=== PATIENT | female | born 1965 | race Caucasian/White ===

== ENCOUNTER → 2021-11-18 14:06 | Outpatient (CLI) | payer OTHER, SELFPAY | PROVIDERS: Visit Provider Nurse Practitioner | DX: U07.1 COVID-19 (principal) | CPT/HCPCS: C9803; U0003; U0005 ==

== ENCOUNTER 2022-09-11 17:42 | Emergency (ER) | payer OTHER, SELFPAY ==
[2022-09-11 20:13] VITALS: BP 154/90; PULSE 76; RESP 18; TEMP 36.9; O2SAT 99; BMI 27.4
[2022-09-11 20:23] LABS: UTC Influenza A Antigen Negative (Negative); UTC Influenza B Antigen Negative (Negative)
--- NOTE | 2022-09-11 20:44 | EXP.UTC ---
Discharge Plan Disposition Patient Disposition: Home, Self-Care Condition: Good Prescriptions Prescriptions: New ondansetron 4 mg tablet,disintegrating 4 mg PO Q8H PRN (Reason: nausea and vomiting) Qty: 10 0RF Referrals Follow up/Referrals: Gene Whitaker [Primary Care Provider] - See instructions Activity Restrictions/Add. Instructions Additional Instructions/Restrictions: *Monitor Temp, Over the counter Motrin or Tylenol as directed/as needed Tylenol every 4 hours and Motrin every 6 hours (as long as your family doctor has told you that you can take it) for fever or pain. and straight to ER if unable to lower temp less than 101.0 after medication given *Warm salt water gargles may help to soothe the throat *Throat Lozenges? *Warm fluids like tea with honey may help to soothe the throat? *Sleep elevated *Humidifier/Vaporizer Follow up IMMEDIATELY for new or worsening symptoms or no Noticeable improvement over the next 48-72 hours. 911 for difficulty breathing or swallowing You were tested for today for Upper Respiratory Panel with COVID19 your test result should be back in the next 24-48 hours, you may check your results on the [facility] Clinical Impressions Clinical Impression: Upper respiratory virus Stand Alone Forms Stand Alone Forms: Work/School Release Instructions Patient Instructions: DI for Fever (Symptom) -- Adult, DI for Viral Upper Respiratory Infection -- Adult Discharge ED Provider: Anne-Marie Feliciano [facility] [place] HPI General Stated complaint: upset stomach, cough, congestion, body aches, soa Mode of Arrival: Ambulatory Source of Information: Patient Limitations: No Limitations Time Seen by Provider: 09/11/22 20:44 Description of Symptoms (Recalled from Triage Doc. by RN): PT TO UT WITH COUGH, FEVER, RUNNY NOSE, NAUSEA AND BODY ACHES X 2 DAYS HEENT Symptoms (Recalled from RN notes): Yes (RUNNY NOSE) Resp Symptoms (Recalled from RN notes): Yes (COUGH, CONGESTION) Skin Symptoms (Recalled from RN notes): No MS Symptoms (Recalled from RN notes): Yes (BODY ACHES) Functional Status (Recalled from RN notes): WDL History of Present Illness Provider Complaint: Patient states that she hasnt felt well for the last couple of days States that she has been having fever, chills, bodyaches, nausea and over all not feeling well States that she feels like she has the flu Related Data Previous Rx's Medication Instructions Recorded ondansetron 4 mg disintegrating 4 mg PO Q8H PRN nausea and 09/11/22 tablet vomiting #10 tabs Allergies Allergy/AdvReac Type Severity Reaction Status Date / Time No Known Allergies Allergy Verified 09/11/22 20:48 Worker's Comp Is this a Worker's Comp case?: No PFSH PFSH Social History Smoking Status: Unknown if ever smoked alcohol intake: never current occupational status: employed Travel in the last 8 weeks: None ROS Obtained: Yes All systems reviewed & no additional complaints except as documented and Yes Systems reviewed as appropriate & no additional complaints except as documented Constitutional Constitutional: Reports system reviewed and no additional complaints, except as documented, Reports as per HPI, Reports body ache, Reports chills and Reports fever(s) ENT Ears, Nose, Mouth, and Throat: Reports system reviewed and no additional complaints, except as documented, Reports as per HPI, Reports nasal congestion and Reports nasal discharge Cardiovascular Cardiovascular: Reports system reviewed and no additional complaints, except as documented and Reports as per HPI Respiratory Respiratory: Reports system reviewed and no additional complaints, except as documented and Reports as per HPI Gastrointestinal Gastrointestingal: Reports system reviewed and no additional complaints, except as documented, as per HPI and nausea Physical Exam General General appearance: alert and in no apparent distress Expanded ENT Exam Nose exam: P
[2022-09-11 20:48] LABS: Adenovirus,PCR Not Detected (NotDetected); Bordetella Pertussis Not Detected (NotDetected); Chlamydophila Pneumoniae, PCR Not Detected (NotDetected); Coronavirus 19, PCR Not Detected (NotDetected); Coronavirus 229E Not Detected (NotDetected); Coronavirus NL63 Not Detected (NotDetected); Coronavirus OC43 Not Detected (NotDetected); Coronovirus HKU1,PCR Not Detected (NotDetected); Human Metapneumovirus Not Detected (NotDetected); Influenza A, PCR Not Detected (NotDetected); Influenza AH1, 2009 Not Detected (NotDetected); Influenza AH1, PCR Not Detected (NotDetected); Influenza AH3,PCR Not Detected (NotDetected); Influenza B, PCR Not Detected (NotDetected); Mycoplasma Pneumoniae, PCR Not Detected (NotDetected); Parainfluenza 1, PCR Not Detected (NotDetected); Parainfluenza 2, PCR Not Detected (NotDetected); Parainfluenza 3, PCR Not Detected (NotDetected); Parainfluenza 4, PCR Not Detected (NotDetected); Respiratory Syncytial Virus Not Detected (NotDetected); Rhinovirus/Enterovirus Not Detected (NotDetected)
[2022-09-11 21:04] VITALS: BP 142/89; PULSE 74; RESP 17; TEMP 36.9; O2SAT 99
== END 2022-09-11 21:05 | disposition home or self-care (01) ==
PROVIDERS: Emergency Provider Nurse Practitioner; PCP Family Medicine
DX: J06.9 Acute upper respiratory infection, unspecified (principal)
CPT/HCPCS: 87581; 87632; 87798; 87804; 99212; C9803; G0463; U0003; U0005

== ENCOUNTER 2023-08-10 10:58 | Emergency (ER) | payer BC, SELFPAY ==
--- NOTE | 2023-08-10 11:20 | EXP.UTC ---
Discharge Plan Disposition Patient Disposition: Home, Self-Care Condition: Good Prescriptions Prescriptions: New azithromycin [Zithromax] 250 mg tablet 250 mg PO UD DOSE PK Qty: 6 0RF Rx Instructions: Take two (2) tablets today, then one (1) tablet days #2 thru #5 benzonatate [benzonatate] 100 mg capsule 100 mg PO TIDP PRN (Reason: Cough) Qty: 30 0RF methylprednisolone 4 mg Tablets,Dose Pack 4 mg PO DIRECTED Qty: 21 0RF No Action bupropion HCl 100 mg tablet sustained-release 12 hr 100 mg PO DAILY Patient Comments: TAKE 1 ORAL TABLET EVERY MORNING FOR MOOD/SMOKING CESSATION alprazolam 0.5 mg tablet 0.5 mg PO BID PRN (Reason: Anxiety) Patient Comments: TAKE 1 TABLET BY MOUTH TWICE DAILY NEEDED FOR ANXIETY DURING THE DAY AND INSOMNIA AT BEDTIME Referrals Follow up/Referrals: Gene Whitaker [Primary Care Provider] - See instructions Activity Restrictions/Add. Instructions Additional Instructions/Restrictions: Drink plenty of fluids. Take tylenol or ibuprofen for pain or fever. Take the medications as directed. Follow up with your regular doctor. GO TO THE ER FOR ANY WORSENING SYMPTOMS Clinical Impressions Clinical Impression: Acute viral syndrome, Exposure to 2019 novel coronavirus, Sinusitis Instructions Patient Instructions: DI for Sinusitis Discharge ED Provider: Jacques Polk [facility] General Stated complaint: runny nose, sore throat, QUINTERO Time Seen by Provider: 08/10/23 11:20 History of Present Illness Provider Complaint: She states that for the past 2 days she has had sinus congestion, sinus pressure, sore throat, and a headache. Related Data Home Medications Medication Instructions Recorded Confirmed alprazolam 0.5 mg tablet 0.5 mg PO BID PRN Anxiety 08/10/23 08/10/23 bupropion HCl 100 mg tablet,12 hr 100 mg PO DAILY mood 08/10/23 08/10/23 sustained-release Previous Rx's Medication Instructions Recorded azithromycin 250 mg tablet 250 mg PO UD DOSE PK #6 tabs 08/10/23 (Zithromax) benzonatate 100 mg capsule 100 mg PO TIDP PRN Cough #30 caps 08/10/23 methylprednisolone 4 mg tablets in 4 mg PO DIRECTED #21 tabs 08/10/23 a dose pack Allergies Allergy/AdvReac Type Severity Reaction Status Date / Time No Known Allergies Allergy Verified 08/10/23 11:42 [facility] Disclaimer: The information contained in this section may have been updated after the patient was seen, as this information can be updated by other users. Social History Smoking Status: Unknown if ever smoked alcohol intake: never current occupational status: employed Travel in the last 8 weeks: None ROS Obtained: Yes All systems reviewed & no additional complaints except as documented Constitutional Constitutional: Reports poor appetite Eyes Eyes: Reports system reviewed and no additional complaints, except as documented ENT Ears, Nose, Mouth, and Throat: Reports as per HPI Cardiovascular Cardiovascular: Reports system reviewed and no additional complaints, except as documented and Denies chest pain Respiratory Respiratory: Denies shortness of breath, Denies chest congestion, Reports cough, Denies stridor and Denies wheezing Gastrointestinal Gastrointestingal: Reports system reviewed and no additional complaints, except as documented; Denies abdominal pain, diarrhea or vomiting Musculoskeletal Musculoskeletal: Reports system reviewed and no additional complaints, except as documented and Denies arthralgias Integumentary/Breasts Skin/Breast: Reports system reviewed and no additional complaints, except as documented and Denies rash Neurologic Neurologic: Denies paresthesias Allergic/Immunologic Allergic/Immunologic: Denies wheezing Physical Exam General General appearance: alert and in no apparent distress Eye Eye exam: Present normal appearance, PERRL and EOMI ENT ENT exam: Present muc
[2023-08-10 11:30] VITALS: BP 142/90; PULSE 78; RESP 18; TEMP 36.8; O2SAT 97; BMI 23.8
[2023-08-10 12:18] VITALS: BP 142/90; PULSE 78; RESP 18; TEMP 36.8; O2SAT 97
== END 2023-08-10 12:18 | disposition home or self-care (01) ==
PROVIDERS: Emergency Provider Nurse Practitioner Family; PCP Family Medicine
DX: J01.90 Acute sinusitis, unspecified (principal); B34.9 Viral infection, unspecified; Z20.822 Contact with and (suspected) exposure to COVID-19
CPT/HCPCS: 87635; 99212; 99214; G0463

== ENCOUNTER 2024-06-13 23:01 | Emergency (ER) | payer BC, SELFPAY ==
--- NOTE | 2024-06-13 23:00 | ECG_ITS ---
APPROVED REPORT Exam: Resting ECG HR:80 bpm ECG Measurements Heart Rate 80 AXES GA 169 P 72 QRSd 90 QRS 78 QT 357 T 66 QTc 393 Conclusion SINUS RHYTHM MINIMAL ST DEPRESSION [0.025+ mV ST DEPRESSION] BORDERLINE ECG No STEMI Electronically signed by : MILAGRO MARINELLI, 06/14/2024 06:07:17
[2024-06-13 23:03] VITALS: BP 225/131; PULSE 89; RESP 16; TEMP 36.6; O2SAT 98; BMI 25.6
--- NOTE | 2024-06-13 23:09 | XR_ITS ---
PROCEDURE INFORMATION: Exam: XR Chest Exam date and time: 06/13/2024 11:42 PM Age: 59 years old Clinical indication: Pain; Chest pressure; Additional info: Cp TECHNIQUE: Imaging protocol: Radiologic exam of the chest. Views: 1 view. COMPARISON: CT ANGIO NECK 06/13/2024 11:34 PM FINDINGS: Lungs: Very mild interstitial prominence. No consolidation. No mass. Calcified hilar lymph nodes. Pleural spaces: Unremarkable. No pleural effusion. No pneumothorax. Heart/Mediastinum: Unremarkable. No cardiomegaly. Vasculature: Unremarkable. Bones/joints: Unremarkable. IMPRESSION: 1. Very mild interstitial prominence which may represent chronic disease or acute inflammation. No focal consolidation. 2. Calcified hilar lymph nodes consistent with prior granulomatous exposure.
[2024-06-13 23:15] VITALS: PULSE 80; RESP 20; O2SAT 97
--- NOTE | 2024-06-13 23:16 | CT_ITS ---
PROCEDURE INFORMATION: Exam: CTA Neck With Contrast Exam date and time: 06/13/2024 11:34 PM Age: 59 years old Clinical indication: Other: Symptomatic HTN, QUINTERO TECHNIQUE: Imaging protocol: Computed tomographic angiography of the neck with contrast. Exam focused on the cervical segments of the vasculature. 3D rendering (Not supervised by radiologist): MIP and/or 3D reconstructed images were created by the technologist. Radiation optimization: All CT scans at this facility use at least one of these dose optimization techniques: automated exposure control; mA and/or kV adjustment per patient size (includes targeted exams where dose is matched to clinical indication); or iterative reconstruction. Contrast material: ISOUVE 370; Contrast volume: 80 ml; Contrast route: INTRAVENOUS (IV); COMPARISON: CT ANGIO HEAD 06/13/2024 11:34 PM FINDINGS: Right common carotid artery: No stenosis. No dissection or occlusion. Right internal carotid artery: No stenosis of the extracranial segment. No dissection or occlusion. Right external carotid artery: No occlusion or stenosis of the origin. Left common carotid artery: No stenosis. No dissection or occlusion. Left internal carotid artery: No stenosis of the extracranial segment. No dissection or occlusion. Left external carotid artery: No occlusion or stenosis of the origin. Right vertebral artery: No stenosis. No dissection or occlusion. Left vertebral artery: No stenosis. No dissection or occlusion. Lymph nodes: Numerous calcified mediastinal hilar lymph nodes are noted. Soft tissues: Normal. No significant soft tissue swelling. Bones/joints: No acute fracture. Lungs: There are mild emphysematous changes at the lung apices. There is a 5 mm left apical nodule image 18 series 3. IMPRESSION: 1. No stenosis or occlusion. 2. 5 mm left apical nodule. For patients at low risk (minimal or absent history of smoking and of other known risk factors), no routine follow-up is indicated. For patients at high risk (history of smoking or of other known risk factors), consider optional CT Chest at 12 months. (Reference: Shalonda) 3. Findings consistent with prior granulomatous exposure. 4. Mild emphysematous changes. REFERENCES: 1. Shalonda Cantor et al. Guidelines for Management of Incidental Pulmonary Nodules Detected on CT Images: From the Fleischner Society 2017. Radiology. 2017;284(1):228-243. 2. NASCET CRITERIA. The degree of stenosis in the cervical segment of the internal carotid artery is based on NASCET criteria. Normal is no stenosis. Mild is less than 50% stenosis. Moderate is 50-69% stenosis. Severe is 70% to 99% stenosis. Total occlusion is no detectable patent lumen.
--- NOTE | 2024-06-13 23:16 | CT_ITS ---
PROCEDURE INFORMATION: Exam: CTA Head With Contrast, Arteriography Exam date and time: 06/13/2024 11:34 PM Age: 59 years old Clinical indication: Headache; Additional info: Symptomatic HTN, QUINTERO TECHNIQUE: Imaging protocol: Computed tomographic angiography of the head with contrast. Exam focused on the arteries. 3D rendering (Not supervised by radiologist): MIP and/or 3D reconstructed images were created by the technologist. Radiation optimization: All CT scans at this facility use at least one of these dose optimization techniques: automated exposure control; mA and/or kV adjustment per patient size (includes targeted exams where dose is matched to clinical indication); or iterative reconstruction. Contrast material: ISOUVE 370; Contrast volume: 80 ml; Contrast route: INTRAVENOUS (IV); COMPARISON: CT HEAD/BRAIN WO CON 06/13/2024 11:34 PM FINDINGS: ANTERIOR CIRCULATION: Right internal carotid artery: Intracranial segment is patent with no significant stenosis. No aneurysm. Right middle cerebral artery: No occlusion or significant stenosis. No aneurysm. Right anterior cerebral artery: No occlusion or significant stenosis. No aneurysm. Left internal carotid artery: Intracranial segment is patent with no significant stenosis. No aneurysm. Left middle cerebral artery: No occlusion or significant stenosis. No aneurysm. Left anterior cerebral artery: No occlusion or significant stenosis. No aneurysm. POSTERIOR CIRCULATION: Right vertebral artery: No occlusion or significant stenosis. No aneurysm. Left vertebral artery: No occlusion or significant stenosis. No aneurysm. Basilar artery: No occlusion or significant stenosis. No aneurysm. Right posterior cerebral artery: No occlusion or significant stenosis. No aneurysm. Left posterior cerebral artery: No occlusion or significant stenosis. No aneurysm. Brain: No definite mass, mass effect, or midline shift. Cerebral ventricles: No ventriculomegaly. Bones/joints: Unremarkable. No acute fracture. Soft tissues: Unremarkable. IMPRESSION: No large vessel stenosis or occlusion.
--- NOTE | 2024-06-13 23:16 | CT_ITS ---
PROCEDURE INFORMATION: Exam: CT Head Without Contrast Exam date and time: 06/13/2024 11:34 PM Age: 59 years old Clinical indication: Other: Symptomatic HTN, QUINTERO TECHNIQUE: Imaging protocol: Computed tomography of the head without contrast. Radiation optimization: All CT scans at this facility use at least one of these dose optimization techniques: automated exposure control; mA and/or kV adjustment per patient size (includes targeted exams where dose is matched to clinical indication); or iterative reconstruction. COMPARISON: CT ANGIO HEAD 06/13/2024 11:34 PM FINDINGS: Brain: Normal. No hemorrhage. Unremarkable white matter. No mass effect. Cerebral ventricles: No ventriculomegaly. Paranasal sinuses: Visualized sinuses are unremarkable. No fluid levels. Mastoid air cells: Visualized mastoid air cells are well aerated. Orbital cavities: The orbital contents are symmetric and normal. Bones: 7 x 14 mm metallic conical shaped structure within the left scalp and outer table of the skull posterior left mastoid region. This is of uncertain significance and correlation with any interventional procedures is recommended. Soft tissues: Unremarkable. IMPRESSION: No acute intracranial abnormality.
[2024-06-13 23:17] LABS: Basophils % 0.2 % (0.1-2.0); Eosinophils # 0.2 K/mm3 (0.0-0.4); Eosinophils % 1.7 % (0.1-12.0); Hematocrit 35.5 % (37.0-47.0); Hemoglobin 11.2 g/dL (12.2-16.2); Lymphocytes # 2.7 K/mm3 (0.7-4.5); Lymphocytes % 23.1 % (10-50); Mean Corpuscular HGB Conc 31.5 g/dL (31.8-35.4); Mean Corpuscular Hemoglobin 21.6 pg (27.0-31.2); Mean Corpuscular Volume 68.5 fl (81-99); Mean Platelet Volume 8.2 fl (7.4-10.4); Monocytes # 0.4 K/mm3 (0.1-1.0); Monocytes % 3.5 % (1.7-9.3); Neutrophils # 8.5 K/mm3 (1.8-7.8); Neutrophils % 71.5 % (37.0-80.0); Platelet Count 263 K/mm3 (142-424); Red Blood Count 5.18 M/mm3 (4.20-5.40); Red Cell Distribution Width 17.1 % (11.5-17.5); White Blood Count 11.9 K/mm3 (4.8-10.8)
[2024-06-13 23:20] LABS: Albumin Level 4.4 g/dl (3.5-5.0); Chloride 104 mmol/L (98-107); Potassium 3.3 mmoL/L (3.5-5.1); Sodium 135 mmol/L (136-145)
[2024-06-13 23:22] LABS: Blood Urea Nitrogen 3 mg/dl (7-17); Creatinine Clearance Estimated 89 mL/min (50-200); Estimated Glomerular Filt Rate 86 ml/min (>60); GFR (African American) 104 ML/MIN (>60)
[2024-06-13 23:23] LABS: Alanine Aminotransferase 14 U/L (12-78); Albumin/Globulin Ratio 1.3 (1.1-1.8); Alkaline Phosphatase 83 U/L (38-126); Anion Gap 10.3 mEq/L (5-15); Aspartate Amino Transferase 28 U/L (14-36); Bilirubin,Total 1.4 mg/dl (0.2-1.3); Calcium 8.6 mg/dl (8.4-10.2); Carbon Dioxide 24 mmol/L (22.0-30.0); Globulin 3.3 g/dL (1.3-3.2); Glucose 94 mg/dl (74-100); Total Protein,Serum 7.7 g/dl (6.3-8.2)
[2024-06-13 23:24] LABS: INR 0.95 (0.9-1.1); Prothrombin Time 10.7 seconds (10.1-12.5)
[2024-06-13 23:30] VITALS: BP 195/115
[2024-06-13 23:35] LABS: Troponin I < 0.01 ng/ml (0.00-0.034)
[2024-06-13] MEDS: 0.9 % SODIUM CHLORIDE 50 ML VIAL IV (23:56)
[2024-06-13] MEDS: SODIUM CHLORIDE 0.9% 10ML SYR (RAD ONLY) 10 ML IV (23:57)
[2024-06-13] MEDS: IOPAMIDOL-370 (76%);100ML BOTTLE 80 ML IV (23:57)
[2024-06-13 23:58] VITALS: BP 176/109
[2024-06-14] VITALS: BP 154/95; BP 176/109
[2024-06-14] MEDS: LABETALOL 20MG/4ML SYRINGE 10 MG IV
--- NOTE | 2024-06-14 00:10 | ED_ITS ---
Discharge Plan Disposition Patient Disposition: Home, Self-Care Condition: Good Prescriptions Prescriptions: New carvedilol 6.25 mg tablet 6.25 mg PO BID Qty: 20 0RF Rx Instructions: must administer with a meal/food No Action bupropion HCl 100 mg tablet sustained-release 12 hr 100 mg PO DAILY Patient Comments: TAKE 1 ORAL TABLET EVERY MORNING FOR MOOD/SMOKING CESSATION alprazolam 0.5 mg tablet 0.5 mg PO BID PRN (Reason: Anxiety) Patient Comments: TAKE 1 TABLET BY MOUTH TWICE DAILY NEEDED FOR ANXIETY DURING THE DAY AND INSOMNIA AT BEDTIME azithromycin [Zithromax] 250 mg tablet 250 mg PO UD DOSE PK Qty: 6 0RF Rx Instructions: Take two (2) tablets today, then one (1) tablet days #2 thru #5 benzonatate [benzonatate] 100 mg capsule 100 mg PO TIDP PRN (Reason: Cough) Qty: 30 0RF methylprednisolone 4 mg Tablets,Dose Pack 4 mg PO DIRECTED Qty: 21 0RF Referrals Follow up/Referrals: Provider,Referral, MD [Primary Care Provider] - See instructions Activity Restrictions/Add. Instructions Additional Instructions/Restrictions: You were evaluated in the ER. You are appropriate for discharge at this time. Take the newly prescribed carvedilol as directed for blood pressure. Follow-up with cardiology, at 1 PM Sunday. Their office phone number is [phone]. Make an appointment with your primary care physician for reevaluation in a few days. Return to the ER with new, worsening, or otherwise concerning symptoms. Clinical Impressions Clinical Impression: Hypertension, Chest pain Print Language Print Language: Bruneian Discharge ED Provider: Perlita Fleming General Chief Complaint: Chest Pain Stated Complaint: cp Time Seen by Provider: 06/13/24 23:08 Mode of Arrival: Family Vehicle Source of Information: Patient Limitations: No Limitations Description of Symptoms (Recalled from ER Triage Doc. by RN): 59 yo female presents following an hour and a half of chest pain that began while she was sitting watching tv. states it radiates down her left arm and that its causing nausea/dizziness. Afebrile. No recent med changes. is not reproducible. took 324 mg aspirin prior to arrival History of Present Illness HPI narrative: 59-year-old female presents to the ER for chest pain that started 1.5 hours prior to arrival while watching TV. Patient reports it radiating down her left arm causing nausea and lightheadedness. Patient does not report any recent symptoms of being ill or any medication changes. She states she has not seen a doctor in multiple years. She has never had high blood pressure but arrives significantly hypertensive. Patient took aspirin prior to arrival. She does report heart cath in 2014 with a very small amount of LAD disease. Patient does not report any difficulty breathing or exacerbation of her symptoms with exertion. Her symptoms briefly improved while in the ER but then worsened again. She reports left headache as well. Related Data Home Medications ?Medication ?Instructions ?Recorded ?Confirmed alprazolam 0.5 mg tablet 0.5 mg PO BID PRN Anxiety 08/10/23 08/10/23 bupropion HCl 100 mg tablet,12 hr 100 mg PO DAILY mood 08/10/23 08/10/23 sustained-release Previous Rx's ?Medication ?Instructions ?Recorded azithromycin 250 mg tablet 250 mg PO UD DOSE PK #6 tabs 08/10/23 (Zithromax) benzonatate 100 mg capsule 100 mg PO TIDP PRN Cough #30 caps 08/10/23 methylprednisolone 4 mg tablets in 4 mg PO DIRECTED #21 tabs 08/10/23 a dose pack carvedilol 6.25 mg tablet 6.25 mg PO BID #20 tabs 06/14/24 Allergies Allergy/AdvReac Type Severity Reaction Status Date / Time No Known Allergies Allergy Verified 08/10/23 11:42 [facility] Disclaimer: The information contained in this section may have been updated after the patient was seen, as this information can be updated by other users. Social History Smoking Status: Unknown if ever smoked alcohol intake: never current occupational status: employed Travel in the last 8 weeks: None ROS Obtained: Yes All systems reviewed & no additional complaints except as documented Constitutional Constitutional: Denies chills, Denies fever(s), Reports headache(s) and Denies weakness Eyes Eyes: Denies change in vision ENT Ears, Nose, Mouth, and Throat: Denies dizziness, Reports headache(s), Denies nasal congestion and Denies sore throat Cardiovascular Cardiovascular: Reports chest pain, Reports chest pain at rest, Denies dyspnea and Denies leg edema Respiratory Respiratory: Denies cough and Denies dyspnea Gastrointestinal Gastrointestingal: Denies constipation, diarrhea, nausea or vomiting Genitourinary Female Genitourinary: Denies dysuria Musculoskeletal Musculoskeletal: Denies arthralgias, Denies myalgias, Denies numbness and Denies tingling Integumentary/Breasts Skin/Breast: Denies change in pigmentation Neurologic Neurologic: Denies dizziness, Reports headache(s), Denies numbness, Denies tingling and Denies weakness Physical Exam General General appearance: alert and in no apparent distress Head Head exam: atraumatic and normocephalic Eye Eye exam: Present PERRL and EOMI ENT ENT exam: Present mucous membranes moist Neck Neck exam: Present normal inspection and full ROM Chest Chest inspection: Present symmetric chest wall rise; Absent tenderness Respiratory Respiratory exam: Present normal lung sounds bilaterally; Absent respiratory distress, wheezes or stridor Cardiovascular Cardiovascular exam: Present regular rate and normal rhythm Abdominal Exam Abdominal exam: Present soft; Absent distention or tenderness Extremities Exam Extremities exam: Present full ROM Neurological Exam Neurological exam: Present alert, oriented X3, CN II-XII intact and normal gait; Absent motor sensory deficit (Patient reports abnormal sensation in her left upper extremity, however 2 point discrimination is intact, no deficits objectively appreciated on exam) Psychiatric Psychiatric exam: Present normal affect and normal mood Skin Skin exam: Present warm and dry HEART Score HEART Score HEART Score assessment performed?: Yes History (anamnesis): Moderately suspicious ECG: Non-specific disturbance Age: 45-65 years Risk factors: 1-2 risk factors Troponin: </= normal limit HEART Score: 4 Critical Care Critical Care Time Critical Care Time: No Medical Decision Making Medical Records Medical records reviewed: Yes I reviewed the patient's medical records. Stephen Inquiry Pt receiving controlled substance: No Vital Signs Vital Signs: 06/13/24 23:03 06/13/24 23:15 06/13/24 23:30 Temperature 97.8 F Temperature Source Oral Pulse Rate 80 Pulse Rate [Right Brachial] 89 Respiratory Rate 16 20 Blood Pressure 195/115 H Blood Pressure [Right Arm] 225/131 H Blood Pressure Mean 148 Blood Pressure Mean [Right Arm] 162 Blood Pressure Source Blood Pressure Source [Right Arm] Automatic Cuff Blood Pressure Position Blood Pressure Position [Right Arm] Sitting 02 Sat by Pulse Oximetry 98 97 Oxygen Delivery Method Room Air 06/13/24 23:58 06/14/24 00:00 06/14/24 00:00 Temperature Temperature Source Pulse Rate Pulse Rate [Right Brachial] Respiratory Rate Blood Pressure 176/109 H 176/109 H 154/95 H Blood Pressure [Right Arm] Blood Pressure Mean 138 120 Blood Pressure Mean [Right Arm] Blood Pressure Source Blood Pressure Source [Right Arm] Blood Pressure Position Blood Pressure Position [Right Arm] 02 Sat by Pulse Oximetry Oxygen Delivery Method 06/14/24 00:30 06/14/24 01:00 06/14/24 03:05 Temperature 98.5 F Temperature Source Oral Pulse Rate 81 Pulse Rate [Right Brachial] Respiratory Rate 18 19 19 Blood Pressure 152/89 H 147/90 H 141/79 H Blood Pressure [Right Arm] Blood Pressure Mean 120 114 Blood Pressure Mean [Right Arm] Blood Pressure Source Automatic Cuff Blood Pressure Source [Right Arm] Blood Pressure Position Sitting Blood Pressure Position [Right Arm] 02 Sat by Pulse Oximetry Oxygen Delivery Method Room Air Lab Data Labs: Lab Results 06/13/24 23:05: WBC 11.9 H, RBC 5.18, Hgb 11.2 L, Hct 35.5 L, MCV 68.5 L, MCH 21.6 L, MCHC 31.5 L, RDW 17.1, Plt Count 263, MPV 8.2, Neut % (Auto) 71.5, Lymph % (Auto) 23.1, Pierce % (Auto) 3.5, Eos % (Auto) 1.7, Baso % (Auto) 0.2, Neut # (Auto) 8.5 H, Lymph # (Auto) 2.7, Pierce # (Auto) 0.4, Eos # (Auto) 0.2, Baso # (Auto) 0.0, PT 10.7, INR 0.95, Sodium 135 L, Potassium 3.3 L, Chloride 104, Carbon Dioxide 24, Anion Gap 10.3, BUN 3 L, Creatinine 0.70, Estimated Creat Clear 89, Estimated GFR 86, Est GFR ( Amer) 104, Glucose 94, Calcium 8.6, Total Bilirubin 1.4 H, AST 28, ALT 14, Alkaline Phosphatase 83, Troponin I < 0.01, Total Protein 7.7, Albumin 4.4, Globulin 3.3 H, Albumin/Globulin Ratio 1.3 06/14/24 02:10: Troponin I < 0.01 06/13/24 23:05 06/13/24 23:05 Response Orders (Tests/Meds): ED MEDICATIONS Discontinued Medications Generic Name Dose Route Start Last Admin Trade Name Raj PRN Reason Stop Dose Admin Iopamidol 80 ml 06/13/24 23:54 06/13/24 23:57 Iopamidol-370 (76%);100ml Bottle IV 06/13/24 23:55 80 ml ONCE ONE Administration Labetalol HCl 10 mg 06/13/24 23:44 06/14/24 00:00 Labetalol 20mg/4ml Syringe IV 06/13/24 23:45 10 mg ONCE ONE Administration Sodium Chloride 50 ml 06/13/24 23:54 06/13/24 23:56 0.9 % Sodium Chloride 50 Ml Vial IV 06/13/24 23:55 50 ml ONCE ONE Administration Sodium Chloride 10 ml 06/13/24 23:54 06/13/24 23:57 Sodium Chloride 0.9% 10ml Syr (Rad Only) IV 07/13/24 23:53 10 ml NEEDED PRN Administration Maintain IV Site ORDERS Category Date Time Status CT angio head Stat Cat Scan 06/13/24 23:[address] angio neck Stat Cat Scan 06/13/24 23:[address] head/brain wo con Stat Cat Scan 06/13/24 23:16 Completed CXR --portable [XR chest portable] Stat Exams 06/13/24 23:09 Completed CBC w/Auto Diff [Complete Blood Count Auto Diff] Stat Lab 06/13/24 23:05 Completed CMP [Comprehensive Metabolic Panel] Stat Lab 06/13/24 23:05 Completed PT INR [Prothrombin Time INR] Stat Lab 06/13/24 23:05 Completed Trop I [Troponin I] Stat Lab 06/13/24 23:05 Completed Troponin I Q3H Lab 06/14/24 02:10 Completed MDM Narrative Medical Decision Narrative: In summary, this 59-year-old female presents to the emergency department today with chest pain. On initial evaluation patient is hypertensive but stable, afebrile, chest pain is not reproducible, aside from hypertension cardiopulmonary exam is reassuring, no objective neurologic deficits. Differential diagnosis includes but is not limited to ACS, hypertensive urgency/emergency, symptomatic hypertension, electrolyte abnormality, kidney dysfunction, I did consider possibility of intracranial bleed or stroke though I have very low suspicion for these given no objective abnormalities on neurologic exam, I also considered esophageal spasm, MSK pain. Based on these concerns, I ordered CT imaging, cardiac workup, serum labs. ECG personally interpreted demonstrates normal sinus rhythm, rate 80, normal axis, normal SD and QTc, no STEMI. Patient received labetalol for treatment of severe hypertension that is symptomatic. Labs personally reviewed demonstrate mild leukocytosis, nonspecific and nonactionable, mild anemia, normal platelets, normal PT/INR, CMP nonactionable, initial troponin undetectably low at less than 0.01, patient was placed into ED observation at 0030 for continued hemodynamic monitoring, serial troponins to rule out evolving FL.. Chest x-ray personally reviewed does not demonstrate acute thoracic abnormality, see radiology read for final interpretation. CT head, CT angiography do not demonstrate acute abnormalities, no findings of occlusion on my personal interpretation. Incidental findings on radiology read were discussed with the patient. She was instructed to follow-up with her primary care regarding incidental lung nodule. Patient was frequently reassessed. While in observation her blood pressure had improved and her symptoms had resolved. She has not had any recurrence and her blood pressure has stayed well-controlled. I discussed this case with Dr. Maxwell since patient had sudden onset chest pain with severe symptomatic hypertension but has never been formally diagnosed with high blood pressure. With a good response to labetalol, he recommended Coreg and outpatient follow-up at 1 PM on Sunday. Patient was prescribed this medication and given instructions for follow-up as well as return precautions for the ER. She indicated understanding and the patient was discharged in stable condition. Total time in ED observation: 2 hours 36 minutes
[2024-06-14 00:30] VITALS: BP 152/89; RESP 18
[2024-06-14 01:00] VITALS: BP 147/90; RESP 19
--- NOTE | 2024-06-14 01:35 | PC.NURSE ---
Pt reports feeling much better, PRovider aware of vitals, denies any needs updated on POC
[2024-06-14 02:37] LABS: Troponin I < 0.01 ng/ml (0.00-0.034)
--- NOTE | 2024-06-14 02:47 | PC.NURSE ---
speaking with dr gee
[2024-06-14 03:05] VITALS: BP 141/79; PULSE 81; RESP 19; TEMP 36.9; O2SAT 98
== END 2024-06-14 03:06 | disposition home or self-care (01) ==
PROVIDERS: Emergency Provider Emergency Medicine
DX: R07.9 Chest pain, unspecified (principal); R51.9 Headache, unspecified; I10 Essential (primary) hypertension
CPT/HCPCS: 70450; 70496; 70498; 71045; 80053; 84484; 85025; 85610; 93005; 96374; 99285; Q9967

== ENCOUNTER 2024-06-16 13:42 | Outpatient (CLI) | payer BC, SELFPAY ==
[2024-06-16 14:42] LABS: Alanine Aminotransferase 9 U/L (12-78); Albumin Level 3.8 g/dl (3.5-5.0); Alkaline Phosphatase 76 U/L (38-126); Aspartate Amino Transferase 23 U/L (14-36); Bilirubin,Indirect 1.1 mg/dL (0.0-0.9); Bilirubin,Total 1.1 mg/dl (0.2-1.3); Bilirubin,Unconjugated 1.3 mg/dL (0.0-1.1); Chol/HDL Ratio 3.5 (1-3.5); Cholesterol 149 mg/dl (140-200); HDL Cholesterol 42 mg/dl (40-60); Total Protein,Serum 7.1 g/dl (6.3-8.2); Triglycerides 107 mg/dl (30-150); VLDL Cholesterol 21 mg/dL (0-40)
[2024-06-16 14:53] LABS: Direct LDL Cholesterol 78.03 mg/dL (100-129)
== END 2024-06-16 23:59 | disposition home or self-care (01) ==
PROVIDERS: PCP Family Medicine; Visit Provider Nurse Practitioner Family
DX: R07.89 Other chest pain (principal); I10 Essential (primary) hypertension
CPT/HCPCS: 36415; 80061; 80076

== ENCOUNTER 2024-08-14 14:23 | Outpatient (CLI) | payer BC, SELFPAY ==
[2024-08-14 15:09] LABS: Chloride 88 mmol/L (98-107); Potassium 3.6 mmoL/L (3.5-5.1); Sodium 122 mmol/L (136-145)
[2024-08-14 15:12] LABS: Blood Urea Nitrogen 7 mg/dl (7-17); Estimated Glomerular Filt Rate 103 ml/min (>60); GFR (African American) 125 ML/MIN (>60)
[2024-08-14 15:13] LABS: Anion Gap 9.6 mEq/L (5-15); Calcium 9.4 mg/dl (8.4-10.2); Carbon Dioxide 28 mmol/L (22.0-30.0); Glucose 64 mg/dl (74-100)
== END 2024-08-14 23:59 | disposition home or self-care (01) ==
LOC: LAB 14:24
PROVIDERS: PCP Family Medicine; Visit Provider Nurse Practitioner Family
DX: E78.2 Mixed hyperlipidemia (principal); I25.118 Atherosclerotic heart disease of native coronary artery with other forms of angina pectoris; I10 Essential (primary) hypertension; I27.20 Pulmonary hypertension, unspecified; F17.200 Nicotine dependence, unspecified, uncomplicated; R06.00 Dyspnea, unspecified
CPT/HCPCS: 36415; 80048

== ENCOUNTER 2024-09-05 09:19 | Outpatient (CLI) | payer BC, SELFPAY ==
[2024-09-05 10:02] LABS: Chloride 109 mmol/L (98-107)
[2024-09-05 10:03] LABS: Potassium 4.2 mmoL/L (3.5-5.1); Sodium 140 mmol/L (136-145)
[2024-09-05 10:06] LABS: Anion Gap 9.2 mEq/L (5-15); Blood Urea Nitrogen 7 mg/dl (7-17); Calcium 8.8 mg/dl (8.4-10.2); Carbon Dioxide 26 mmol/L (22.0-30.0); Estimated Glomerular Filt Rate 86 ml/min (>60); GFR (African American) 104 ML/MIN (>60); Glucose 117 mg/dl (74-100)
== END 2024-09-05 23:59 | disposition home or self-care (01) ==
PROVIDERS: PCP Family Medicine; Visit Provider Nurse Practitioner Family
DX: E87.1 Hypo-osmolality and hyponatremia (principal)
CPT/HCPCS: 36415; 80048

== ENCOUNTER 2024-10-22 11:26 | Outpatient (CLI) | payer BC, SELFPAY ==
[2024-10-22 13:08] LABS: Amphetamine/Metha Screen,Urine Negative ng/ml (<1000); Barbiturates Screen,Urine Negative ng/ml (<200)
[2024-10-22 13:09] LABS: Benzodiazepines Screen,Urine Positive ng/ml (<200)
[2024-10-22 13:10] LABS: Cannabinoid Screen,Urine Negative ng/ml (<50); Cocaine Screen,Urine Negative ng/ml (<300)
[2024-10-22 13:11] LABS: Methadone Screen,Urine Negative ng/ml (<300)
[2024-10-22 13:12] LABS: Opiate Screen,Urine Negative ng/ml (<300); Phencyclidine Screen,Urine Negative ng/ml (<25)
== END 2024-10-22 23:59 | disposition home or self-care (01) ==
LOC: LAB 11:27
PROVIDERS: PCP Family Medicine; Visit Provider Nurse Practitioner Psychiatric/Mental Health
DX: Z79.899 Other long term (current) drug therapy (principal)
CPT/HCPCS: 80307

== ENCOUNTER 2024-11-26 14:12 | Outpatient (CLI) | payer BC, SELFPAY ==
--- NOTE | 2024-11-26 14:18 | CT_ITS ---
FINAL REPORT TECHNIQUE: Axial CT images of the chest were obtained without contrast. Low-dose protocol was utilized. This study was performed with techniques to keep radiation doses as low as reasonably achievable (ALARA). Individualized dose reduction techniques using automated exposure control or adjustment of mA and/or kV according to the patient's size were employed. CLINICAL HISTORY: lung cancer screening current smoker 1ppd x48 years COMPARISON: None FINDINGS: CT CHEST WITHOUT, LOW DOSE SCREENING CT Di Vol: 2.90 mGy DLP: 96.38 mGy*cm There is bulky calcification in the left hilar and subcarinal regions. The heart size is normal. There is no pleural or pericardial effusion. The lung windows show a 5 mm left upper lobe nodule on image 24 series 4. Limited images of the upper abdomen demonstrate no acute findings. IMPRESSION: Left upper lobe nodule. LR Category 2: 12 month follow-up low-dose chest CT is recommended per Fleischner criteria. Reviewed, Interpreted and Dictated by Rickey Taylor MD Transcribed by Aleshia Schwartz Authenticated and [facility]
[2024-11-26] MEDS: ALBUTEROL 0.083% 2.5 MG/3 ML NEB IH (15:23)
== END 2024-11-26 23:59 | disposition home or self-care (01) ==
LOC: RAD 14:13
PROVIDERS: PCP Family Medicine; Visit Provider Internal Medicine Pulmonary Disease
DX: R06.09 Other forms of dyspnea (principal); F17.210 Nicotine dependence, cigarettes, uncomplicated
CPT/HCPCS: 71271; 94060; 94618; 94726; 94729; J7613

== ENCOUNTER → 2025-01-29 09:05 | Outpatient (CLI) | payer BC, SELFPAY | LOC: SL 09:05 | PROVIDERS: PCP Internal Medicine Pulmonary Disease; Visit Provider Internal Medicine Pulmonary Disease | DX: R06.81 Apnea, not elsewhere classified (principal); R40.0 Somnolence | CPT/HCPCS: G0399 ==

== ENCOUNTER 2025-04-07 15:35 | Outpatient (CLI) | payer BC, SELFPAY ==
--- NOTE | 2025-04-07 15:38 | XR_ITS ---
FINAL REPORT CLINICAL HISTORY: sob x 2 weeks COMPARISON: 06/14/2024 FINDINGS: 2 views of the chest were obtained . The heart is normal in size. The mediastinum is within normal limits. Nodular density is seen adjacent to the left heart border which is new from prior exam. There is no pleural effusion. There is no pneumothorax. Osseous structures are unremarkable. IMPRESSION: Left lower lobe nodule. Recommend CT for further evaluation. Reviewed, Interpreted and Dictated by Helen Salazar MD Transcribed by Julia Lakhani Authenticated and [facility]
== END 2025-04-07 23:59 | disposition home or self-care (01) ==
LOC: RAD 15:36
PROVIDERS: PCP Family Medicine; Visit Provider Internal Medicine Pulmonary Disease
DX: R91.1 Solitary pulmonary nodule (principal)
CPT/HCPCS: 71046

== ENCOUNTER 2025-04-08 11:56 | Outpatient (CLI) | payer BC, SELFPAY | END 2025-04-08 23:59 | disposition home or self-care (01) | LOC: LAB.DROPOF 11:57 | PROVIDERS: PCP Family Medicine; Visit Provider Internal Medicine Pulmonary Disease | DX: R06.09 Other forms of dyspnea (principal) | CPT/HCPCS: 87070; 87077; 87186; 87205 ==

== ENCOUNTER 2025-09-24 13:25 | Outpatient (CLI) | payer BC, SELFPAY ==
[2025-09-24 15:26] LABS: Amphetamine/Metha Screen,Urine Negative ng/ml (<1000)
[2025-09-24 15:27] LABS: Barbiturates Screen,Urine Negative ng/ml (<200); Benzodiazepines Screen,Urine Positive ng/ml (<200)
[2025-09-24 15:29] LABS: Methadone Screen,Urine Negative ng/ml (<300)
[2025-09-24 15:30] LABS: Opiate Screen,Urine Negative ng/ml (<300); Phencyclidine Screen,Urine Negative ng/ml (<25)
--- OUTSIDE RECORDS SUMMARY | 2025-09-24 16:17 | XMS_ITS | Encounter Summary ---
Author Organization [place] [address] Care Team Providers Care [employer] Machine Helper Name Role Phone Nasim Loomis MD Unavailable [phone] Tony Pendleton DPM Unavailable Unav ailable Julianne, Gene DO Primary Care Provider [phone] Encounter Details Date Type Department Care Team (Late st Contact Info) Description 04/21/2020 Lab Requisition [facility] [place] [address] Lobo Hansen MD Encounter for screening for other viral diseases Social History Tobacco Use Types Packs/Day Years Used Date Smoking Tobacco: Former Cigarettes 1 34.1 0 03/31/1980 - 05/01/2014 Smokeless Tobacco: Never Alcohol Use Standard Drinks/Week Comments No 0 (1 standard drink = 0.6 oz pur e alcohol) PHQ-2 Answer Date Recorded PHQ-2 Score 0 04/13/2020 Comments No Sex and Gender Information Value Date Recorded Sex Assigned at Not on file Legal Sex Female 10:09 PM EDT Gender Identity Not on file Sexual Orientation Not on file COVID-19 Exposure Response Date Recorded In the last month, have you been in contact with someone who was confirmed or suspected to have Coronavirus / COVID-19? No / Unsure 04/13/2020 1:54 PM EDT documented as of this encounter Functional Status * Is the person deaf or does he/she have serious difficulty hearing? Answer Date of Assessment Author No 04/13/2020 1:19 PM EDT Twila Shelton MA * Is the person blind or does he/she have serious difficulty seeing even when wearing glasses? Answer Date of Assessment Author No 04/13/2020 1:19 PM EDT Eric Shelton MA * Does this person have serious difficulty walking or climbing stairs? Answer Date of Assessment Author No 04/13/2020 1:19 PM EDT Eric Shelton MA * Does this person have difficulty dressing or bathing? Answer Date of Assessment Author No 04/13/2020 1:19 PM EDT Eric Shelton MA * Because of a physical, mental or emotional condition, does this person have difficulty doing errands alone such as visiting a doctor's office or shopping? Answer Date of Assessment Author No 04/13/2020 1:19 PM EDT Eric Shelton MA documented as of this encounter Mental Status * Because of a physical, mental or emotional condition, does this person have serious difficulty concentrating, remembering or making decisions? Answer Entry Date Author No 04/13/2020 1:19 PM EDT Eric Shelton MA documented in this encounter Plan of Treatment Not on file documented as of this encounter Goals Goal Patient Goal Type Associated Problems Recent Progress Patient-Stated? Author Maintain a healthy diet, exercise regularly and maintain an ideal body weight General No Diane Love RMA Stay Tobacco Free Lifestyle No Diane Love RMA documented as of this encounter Procedures Procedure Name Priority Date/Time Associated Diagnosis Comments CORONAVIRUS 2019 (COVID-19) - REF LAB Routine 04/21/2020 9:00 AM EDT Encounter for screening for other viral diseases documented in this encounter Results * CORONAVIRUS 2019 (COVID-19) - REF LAB (04/21/2020 9:00 AM EDT) CORONAVIRUS [id number] NON-DETEC DAPHNIE NON-DETEC DAPHNIE 04/22/2020 5:24 PM EDT [facility] Comment: A Non-Detected result does not preclude the possibility of 2019-nCoV infection since the adequacy of sample collection and/or low viral burden may result in the presence of viral nucleic acids below the analytical sensitivity of this test method. Test results should be used with caution and in conjunction with other clinical and laboratory data in making a diagnosis. Swab NASOPHARYNGEAL STRUCTURE / Unknown 04/21/2020 9:00 AM EDT 04/21/2020 4:09 PM EDT Narrative [facility] - 04/22/2020 5:24 PM EDT The SARS-CoV-2 assay is a real-time RT-PCR test intended for the qualitative detection of nucleic acid from the SARS-CoV-2 in respiratory specimens from individuals. Testing is limited to the guidelines of FDA Emergency Use Authorization FDA for performing SARS-CoV-2 testing. All testing is considered laboratory developed and performance characteristics are determined by [facility]. It has not been cleared nor approved by the FDA. The laboratory is accredited through CLIA and deemed qualified to perform high-complexity testing. Such testing is used for clinical purposes and should not be regarded as investigational or for research. Bromide Pat ID: [id number]; Unbound Req Num: [id number]; Unbound Spec ID: [id number] Lobo Hansen MD LAB SEND OUT ORDERABLES Lisa tony [facility] [address] [place] [address] documented in this encounter Visit Diagnoses Diagnosis Encounter for screening for other viral diseases documented in this encounter Care Teams [employer] Machine Helper Relationship Specialty Start Date End Date Gene Whitaker DO [address] [place], [place] [id number] PCP - General Family Medicine 11/09/17 09/23/24 Nasim Loomis MD [address] [place] [address] [place] [address] Internal Medicine-Cardiovascular Disease 12/03/15 Tony Pendleton DPM [address] [place] [address] [place] [address] Ditcher Operator-Surgery, Foot & Ankle 06/03/16 documented as of this encounter
--- OUTSIDE RECORDS SUMMARY | 2025-09-24 16:17 | XMS_ITS | Clinical Summary ---
Author Organization [facility] Address [address] [place] [address] Phone Care Team Providers Care Workers Compensation Manager Name Role Phone Nasim Loomis MD Unavailable [phone] Tony Pendleton DPM Unavailable Unav ailable Allergies Active Allergy Reactions Criticality Noted Date Comments Ketorolac 07/03/2016 Kidney failure Medications albuterol (PROVENTIL HFA;VENTOLIN HFA) 90 mcg/actuation Inhl HFA Aerosol InhalerIndicatio ns:Acute bacterial sinusitis Inhale 2 Puffs into the lungs every 4 hours as needed for Wheezing. 1 Each 2 09/14/2022 Active NIFEdipine (PROCARDIA XL) 30 mg Oral Tablet Extended Rel 24 hr Take 1 Tablet by mouth daily. 30 Tablet 1 11/14/2022 Active Active Problems Problem Noted Date Diagnosed Date Essential hypertension 11/14/2022 Chest pain, unspecified type 11/13/2022 Colon cancer screening 07/31/2018 Heart palpitations 10/31/2015 Metatarsus primus varus Pain of foot Hallux interphalangeus, acquired Difficulty walking Hammer toe of left foot Resolved Problems Problem Noted Date Diagnosed Date Resolved Date Chest pain at rest 10/31/2015 8 Surgical History Surgery Date Site/Laterality Comments HYSTERECTOMY, TOTAL BUNIONECTOMY 07/24/2016 Left LEFT FOOT CORRECTION BUNION DEFORMITY SCARF FLEXOR TENOTOMIES TOES 2-4 LEFT FOOT; Surgeon: Tony Pendleton DPM; [facility]; Service: Podiatry Medical devices from this surgery are in the Medical Devices section. COLONOSCOPY 07/31/2018 N/A COLONOSCOPY with polypectomy via hot snare ; Surgeon: Luis Alberto Gasca MD; Location: T ENDOSCOPY; Service: Endoscopy TONSILLECTOMY WISDOM TOOTH EXTRACTION FOOT SURGERY hammer toe repair great toe left foot OTHER SURGICAL HISTORY Left bone implanted hearing device HIP ARTHROPLASTY 01/28/2021 Right RIGHT TOTAL HIP REPLACEMENT; Surgeon: Jorge Brito MD; Location: ED MAIN OR; Service: Orthopedics Medical devices from this surgery are in the Medical Devices section. Medical History Medical History Date Comments Complication of anesthesia kidne y problem - caused when given toradol Angina pectoris Anxiety Heart palpitations Post-operative nausea and vomiting Thalassemia Osteoarthritis Tinnitus, left ear Motion sickness Meniere disease Family History Medical History Relation Name Comments Hearing Loss Father Heart Disease Father Heart Disease Mother High Blood Pressure Mother High Cholesterol Mother Relation Name Status Comments Father Alive Mother Social History Tobacco Use Types Packs/Day Years Used Date Smoking Tobacco: Former Cigarettes 1 34.1 0 03/31/1980 - 05/01/2014 Smokeless Tobacco: Never Tobacco Cessation:Counseling Given: Not Answered Alcohol Use Standard Drinks/Week Comments No 0 (1 standard drink = 0.6 oz pur e alcohol) PHQ-2 Answer Date Recorded PHQ-2 Total Score 0 09/14/2022 Comments No Sex and Gender Information Value Date Recorded Sex Assigned at Not on file Legal Sex Female 10:09 PM EDT Gender Identity Not on file Sexual Orientation Not on file Last Filed Vital Signs Vital Sign Reading Time Taken Comments Blood Pressure 174/104 11/14/2022 3:34 PM EST Pulse 64 11/14/2022 3:34 PM EST Temperature 36.7 C (98 F) 11/14/2022 3:34 PM EST Respiratory Rate 16 11/14/2022 3:34 PM EST Oxygen Saturation 96% 11/14/2022 3:34 PM EST Inhaled Oxygen Concentration - - Weight 64.9 kg (143 lb) 11/14/2022 8:05 AM EST Height 157.5 cm (5' 2 ) 11/14/2022 8:05 AM EST Body Mass Index 26.16 11/14/2022 8:05 AM EST Plan of Treatment Health Maintenance Due Date Last Done Comments Annual Wellness Exam 1970 DTaP/TDaP/Td (1 - Tdap) 1986 Hepatitis B Vaccine (1 of 3 - 19+ 3-dose series) 1986 Cologuard 02/22/2012 FIT 02/22/2012 Sigmoidoscopy 02/22/2012 Virtual Colonography 02/22/2012 Low Dose Lung Cancer Screening 2017 Pneumococcal Vaccine 50+ (1 of 1 - PCV) 2017 Zoster (1 of 2) 2017 Breast Cancer Screening 07/13/2020 07/13/20 18, 02/01/2016 Colon Cancer Screening 07/31/2023 Colonoscopy 07/31/2023 07/31/2018 COVID-19 Vaccine (2024-2 6 season) 2025 Influenza Vaccine (#1) 2025 Meningococcal B Vaccine Aged Out No l onger eligible based on patient's age to complete this topic Goals Goal Patient Goal Type Associated Problems Recent Progress Patient-Stated? Author Maintain a healthy diet, exercise regularly and maintain an ideal body weight General No Diane Love RMA Stay Tobacco Free Lifestyle No Diane Love RMA Medical Devices Implanted Type Area Event Av Operator Device Identifier Shelf Expiration Date Model / Serial / Lot O[employer]on Medical Titanium Implant System- 5 Implanted:030 11/2014 (Quantity not on file) Screw Cannulated Asnis Micro 3.0mm X 15/4mm - [id number] Implanted:Qty: 1 on 07/24/2016 by Tony Pendleton DPM at [facility] Left: Foot CIARAN:ORTHOPED ICS [id number] / / Screw Cannulated Asnis Micro 3.0mm X 14/4mm - [id number] Implanted:Qty: 1 on 07/24/2016 by Tony Pendleton DPM at [facility] Left: Foot CIARAN:ORTHOPED ICS [id number] / / Easyclip 08-14-10 - [id number] Implanted:Qty: 1 on 07/24/2016 by Tony Pendleton DPM at [facility] Left: Foot CIARAN:ORTHOPED ICS 07/06/2020 [id number] / / [id number] Liner Actb Sz-D [id number] Trident Prim 0d 7.9mmx3 - [id number] Implanted:Qty: 1 on 01/28/2021 by Jorge Brito MD at [facility] Right: Hip CIARAN:ORTHOPED ICS [id number] 10/24/2025 [id number] / / [id number] Cup Actb Trident Ii Sz-D 48mm Clstr Scr 3hl Tritan Hap Prim - [id number] Implanted:Qty: 1 on 01/28/2021 by Jorge Brito MD at [facility] Right: Hip CIARAN:ORTHOPED ICS [id number] 11/13/2025 [id number] / / [id number] Stem Sz3 38mm Ofst Accolade Ii Prim Recon Ti Plasm Steelton Ctd - [id number] Implanted:Qty: 1 on 01/28/2021 by Jorge Brito MD at [facility] Right: Hip CIARAN:ORTHOPED ICS [id number] 12/13/2025 [id number] / / [id number] Head Fem V-40 36mm-2.5mm Nk Biolox Delta Cerm Tapr Prim Mod - [id number] Implanted:Qty: 1 on 01/28/2021 by Jorge Brito MD at [facility] Right: Hip CIARAN:ORTHOPED ICS [id number] 12/01/2025 [id number] / / [id number] Procedures Procedure Name Priority Date/Time Associated Diagnosis Comments [facility] COLONOSCOPY Routine 07/31/2018 7:40 AM EDT MM MAMMO DIGITAL BLAINE DIAGN BILAT Routine 07/13/2018 3:04 PM EDT Breast calcification, right from Last 3 Months or Most Recently Relevant to Health Maintenance Results * [facility] COLONOSCOPY (07/31/2018 7:40 AM EDT) 07/31/2018 7:40 AM EDT Impressions [facility] - 07/31/2018 8:20 AM EDT Mild diverticulosis of the descending colon and sigmoid colon. Polyp (3 mm) in the ascending colon. (Polypectomy). Polyps (2 mm to 4 mm) in the sigmoid colon. (Polypectomy). Plan: Colonoscopy in 5 or 10 years depending on pathology results. This section is an excerpt of the full report. us Luis Alberto Gasca MD GI PROCEDURE ORDERABLES Fin al Result [facility] [address] [id number] * MM MAMMO DIGITAL BLAINE DIAGN BILAT (07/13/2018 3:04 PM EDT) Anatomical Region Laterality Modality Breast Bilateral Mammography 07/15/2018 9:21 AM EDT Impressions 07/15/2018 9:21 AM EDT Benign finding ([id number]-5) ~ RECOMMENDATION: Follow-up diagnostic mammogram of both breasts in 1 year. ~ DISCLAIMER * Any patient with a palpable abnormality, unexplained by breast imaging, should be managed on clinical basis by the attending physician. * Breast imaging has a false negative rate of 15%. * The patient was notified by mail of the results of this examination. *The patient's information was entered into a reminder system with a target due date for the next mammogram. Narrative 07/15/2018 9:21 AM EDT Procedure:MM MAMMO DIGITAL BLAINE DIAGN BILAT ~ Reason for exam: addl eval requested from prior study. R92.1-Mammographic calcification found on diagnostic imaging of [id number]. Prior right breast biopsy at outside institution with pathologic diagnosis of LCIS. No current clinical complaints. ~ MM MAMMO DIGITAL BLAINE DIAGN BILAT Bilateral CC and MLO view(s) were taken. Technologist: Tabby Jain RT The breast tissue is heterogeneously dense. This may lower the sensitivity of mammography. Prior study comparison: Compared with prior studies the most recent being 02-01-16 and 09/21/2010. The breasts remain moderately dense in appearance with stable architectural pattern. Solitary biopsy marker, medial right breast. Focal stable coarse calcifications, upper outer quadrant right breast. Stable loosely scattered regional microcalcifications within the upper outer quadrant, left breast. No discrete mass/architectural changes appreciated on 3-D blaine imaging. ~ Procedure Note Sheldon Barreto, DO - 07/15/2018 Procedure:MM MAMMO DIGITAL BLAINE DIAGN BILAT ~ Reason for exam: addl eval requested from prior study. R92.1-Mammographic calcification found on diagnostic imaging of [id number]-[id number]. Prior right breast biopsy at outside institution with pathologic diagnosis of LCIS. No current clinical complaints. ~ MM MAMMO DIGITAL BLAINE DIAGN BILAT Bilateral CC and MLO view(s) were taken. Technologist: Tabby Jain, RT The breast tissue is heterogeneously dense. This may lower thesensitivity of mammography. Prior study comparison: Compared with prior studies the most recentbeing 02-01-16 and 09/21/2010. The breasts remain moderately dense in appearance with stablearchitectural pattern. Solitary biopsy marker, medial right breast. Focal stablecoarse calcifications, upper outer quadrant right breast. Stable looselyscattered regional microcalcifications within the upper outer quadrant, leftbreast. No discrete mass/architectural changes appreciated on 3-D blaine imaging. ~ IMPRESSION: Benign finding (BTU-Sduzfeki-3) ~ RECOMMENDATION: Follow-up diagnostic mammogram of both breasts in 1 year. ~ DISCLAIMER * Any patient with a palpable abnormality, unexplained by breast imaging, should be managed on clinical basis by the attending physician. * Breast imaging has a false negative rate of 15%. * The patient was notified by mail of the results of this examination. *The patient's information was entered into a reminder system with atarget due date for the next mammogram. us Gene Whitaker DO IMG MAMMOGRAPHY ORDERABLES Lisa l Result from Last 3 Months or Most Recently Relevant to Health Maintenance Insurance ANTHEM PPO ANTHEM PPO Advance Directives For more information, please contact: [phone] * Full Code (Latest Code Status on File) Date Activated Date Inactivated Comments 10/31/2015 4:37 AM 11/01/2015 9:17 PM Care Teams Workers Compensation Manager Relationship Specialty Start Date End Date Nasim Loomis MD [address] [place] [address] Internal Medicine-Cardiovascular Disease 12/03/15 Tony Pendleton DPM [address] [place] [address] Political Researcher-Surgery, Foot & Ankle 06/03/16
--- OUTSIDE RECORDS SUMMARY | 2025-09-24 16:17 | XMS_ITS | Encounter Summary ---
Author Organization [place] [address] Care Team Providers Care Deli Manager Name Role Phone Nasim Loomis MD Unavailable [phone] Tony Pendleton DPM Unavailable Unav ailable Julianne, Gene DO Primary Care Provider [phone] Encounter Details Date Type Department Care Team (Late st Contact Info) Description 05/24/2020 Lab Requisition [facility] [place] [address] Lobo Hansen MD Encounter for screening for [...] have Coronavirus / COVID-19? No / Unsure 05/12/2020 3:43 PM EDT documented as of this encounter Functional Status * Is the person deaf or does he/she have serious difficulty hearing? Answer Date of Assessment Author No 04/13/2020 1:19 PM EDT Eric Shelton MA * Is the person blind [...] Eric Shelton MA documented in this encounter Progress Notes * Gene Whitaker DO - 05/24/2020 12:53 PM EDT Negative documented in this encounter Plan of Treatment [...] Name Priority Date/Time Associated Diagnosis Comments CORONAVIRUS 2018 (COVID-19) - REF LAB Routine 05/24/2020 12:53 PM EDT Encounter for screening for other viral diseases documented in this encounter Results * CORONAVIRUS 2018 (COVID-19) - REF LAB (05/24/2020 12:53 PM EDT) Pathologist [facility] CORONAVIRUS [id number] NON-DETEC DAPHNIE NON-DETEC DAPHNIE 05/25/2020 3:23 PM EDT [facility] Comment: A Non-Detected result does not [...] a diagnosis. Swab NASOPHARYNGEAL STRUCTURE / Unknown 05/24/2020 12:53 PM EDT 05/24/2020 12:53 PM EDT Narrative [facility] - 05/25/2020 3:23 PM EDT The SARS-CoV-2 assay is a real-time RT-PCR test intended for the qualitative detection of nucleic acid from the SARS-CoV-2 in respiratory specimens from individuals. Testing is limited to the guidelines of FDA Emergency Use Authorization FDA for performing SARS-CoV-2 testing. All testing is considered laboratory developed and performance characteristics are determined by [facility]. It has not been cleared nor approved by the FDA. The laboratory is accredited through CLIA and deemed qualified to perform high-complexity testing. Such testing is used for clinical purposes and should not be regarded as investigational or for research. [facility] Pat ID: [id number]; [facility] Req Num: [id number]; [employer] Spec ID: [id number] Lobo Hansen MD LAB SEND OUT ORDERABLES Lisa tony Result [facility] [address] [place] [address] documented in this encounter Visit Diagnoses Diagnosis Encounter for screening for other viral diseases documented in this encounter Care Teams Deli Manager Relationship Specialty Start Date End Date Gene Whitaker DO [address] [place] [address] PCP - General Family Medicine 11/09/17 09/23/24 Nasim Loomis MD [address] [place] [address] [place] [address] Internal Medicine-Cardiovascular Disease 12/03/15 Tony Pendleton DPM [address] [place] [address] Group Burner Machine-Surgery, Foot & Ankle 06/03/16 documented as of this encounter
--- OUTSIDE RECORDS SUMMARY | 2025-09-24 16:17 | XMS_ITS | Encounter Summary ---
Author Organization [place] [address] Care Team Providers Care Plastics Fabricator Or Welder Name Role Phone Nasim Loomis MD Unavailable [phone] Tony Pendleton DPM Unavailable Unav ailable Julianne, Gene DO Primary Care Provider [phone] Encounter Details Date Type Department Care Team (Late st Contact Info) Description 06/04/2020 Lab Requisition [facility] [place] [address] Lobo Hansen MD Encounter for screening for [...] CORONAVIRUS 2018 (COVID-19) - REF LAB Routine 06/04/2020 12:00 PM EDT Encounter for screening for other viral diseases documented in this encounter Results * CORONAVIRUS 2019 (COVID-19) - REF LAB (06/04/2020 12:00 PM EDT) [facility] CORONAVIRUS [id number] NOT DETECTED NOT DETECTED 06/06/2020 10:38 AM EDT [facility] Comment: A Not Detected result does not preclude the possibility of SARS-CoV-2 infection since the adequacy of sample collection and/or low viral burden may result in the presence of viral nucleic acids below the analytical sensitivity of this test method. Test results should be used with caution and in conjunction with other clinical and laboratory data in making a diagnosis. Swab NASOPHARYNGEAL STRUCTURE / Unknown 06/04/2020 12:00 PM EDT 06/04/2020 6:02 PM EDT Narrative [facility] - 06/06/2020 10:38 AM EDT The SARS-CoV-2 assay is a real-time RT-PCR test intended for the qualitative detection of nucleic acid from the SARS-CoV-2 in respiratory specimens from individuals. Testing is limited to the guidelines of FDA Emergency Use Authorization FDA for performing SARS-CoV-2 testing. All testing is considered laboratory developed and performance characteristics are determined by [facility]. It has not been cleared nor approved by the FDA. The laboratory is accredited through CLIA and deemed qualified to perform high-complexity testing. Such testing is used for clinical purposes and should not be regarded as investigational or for research. [facility] Pat ID: [id number]; [facility] Req Num: [id number]; [facility] Spec ID: [id number] Lobo Hansen MD LAB SEND OUT ORDERABLES Lisa l Result [facility] [address] [place] [address] documented in this encounter Visit Diagnoses Diagnosis Encounter for screening for other viral diseases documented in this encounter Care Teams Plastics Fabricator Or Welder Relationship Specialty Start Date End Date Gene Whitaker DO [address] [place], [place] [id number] PCP - General Family Medicine 11/09/17 09/23/24 Nasim Loomis MD [address] [place] [address] [place] [address] Internal Medicine-Cardiovascular Disease 12/03/15 Tony Pendleton DPM [address] [place] [address] [place] [address] Window Trimmer-Surgery, Foot & Ankle 06/03/16 documented as of this encounter
== END 2025-09-24 23:59 | disposition home or self-care (01) ==
LOC: LAB 13:25
PROVIDERS: PCP Family Medicine; Visit Provider Nurse Practitioner Psychiatric/Mental Health
DX: F41.1 Generalized anxiety disorder (principal); Z79.899 Other long term (current) drug therapy
CPT/HCPCS: 36415; 80307